=== PATIENT | female | born 1955 | race Caucasian/White ===

== ENCOUNTER → 2019-08-26 | Outpatient (CLI) | payer MEDICARE, MEDICAID ==
--- NOTE | 2019-08-26 16:41 | Diagnostic Imaging Report ---
EXAMINATION: Magnetic resonance imaging of the right shoulder without contrast. DATE: August 26, 2019. COMPARISON: None. HISTORY: 64-year-old female, fall in May 2019. Right shoulder pain, weakness, and decreased range of motion. TECHNIQUE: Magnetic Resonance Imaging sequences were performed of the shoulder without contrast. FINDINGS: ROTATOR CUFF, LIGAMENTS, TENDONS, AND MUSCLES: There is severe supraspinatus tendinopathy. There is mild infraspinatus tendinopathy. The teres minor tendon is intact. There is subscapularis tendinopathy. There is normal rotator cuff muscle bulk and signal. LONG HEAD OF BICEPS: The biceps labral attachment and long head of the biceps tendon are intact. The long head of the biceps tendon is normally positioned within the bicipital groove. GLENOHUMERAL JOINT: The humeral head is well positioned relative to the glenoid. The labrum is grossly intact. There is no identified paralabral cyst. The articular cartilage is grossly intact. There is no joint effusion. ACROMIOCLAVICULAR JOINT: The acromioclavicular joint is normally aligned. The coracoclavicular and coracoacromial ligaments are intact. There are severe acromioclavicular degenerative changes. The distal clavicle is projecting approximately 6 mm below the joint margin. BONE: There is no os acromiale. There is degenerative related marrow edema adjacent to the acromioclavicular joint. There is no Hill-Sachs deformity. There is no acute fracture, bone contusion, or evidence of osteonecrosis. BURSAE AND SOFT TISSUES: The bursae and soft tissue surrounding the shoulder are unremarkable. IMPRESSION: 1. Severe supraspinatus tendinopathy. Tendinopathy of the subscapularis and infraspinatus. Negative for full-thickness rotator cuff tendon tear. No fatty muscle atrophy. 2. Severe acromioclavicular degenerative changes with the distal clavicle projecting 6 mm below the joint margin. 3. No acute fracture, bone contusion, or evidence of osteonecrosis. 4. Grossly intact labrum and unremarkable additional glenohumeral joint assessment. Dictated by: Dictated on workstation # [id number]
== END ==
LOC: RAD 13:51
PROVIDERS: ATTEND Orthopaedic Surgery
DX: M75.101 Unspecified rotator cuff tear or rupture of right shoulder, not specified as traumatic (principal); M75.91 Shoulder lesion, unspecified, right shoulder; M19.011 Primary osteoarthritis, right shoulder
CPT/HCPCS: 73221

== ENCOUNTER → 2019-09-27 | Outpatient (CLI) | payer MEDICARE, MEDICAID ==
--- NOTE | 2019-09-27 14:50 | Diagnostic Imaging Report ---
PROCEDURE: MR imaging cervical spine without contrast. TECHNIQUE: Multiplanar, multisequence MR imaging of the cervical spine was performed without contrast. INDICATION: Fall with neck pain. COMPARISON: No prior MRI cervical spine studies are available for comparison. FINDINGS: Curvature and alignment of the cervical spine is normal. The vertebral body marrow signal is normal. No marrow lesion is seen. There is some generalized degenerative disc disease with variable disc space narrowing and desiccation. The cervical spinal cord demonstrates normal homogeneous signal intensity and normal morphology. The craniocervical junction is unremarkable. C2-C3: The central canal and neural foramina are widely patent. C3-C4: Minimal midline disc/osteophyte complex indents the ventral thecal sac. Central canal and neural foramina remain widely patent. C4-C5: Endplate osteophytes produce slight indentation upon the ventral thecal sac, but no central canal or neural foraminal stenosis is seen. C5-C6: Endplate osteophytes indent the ventral thecal sac. No significant central canal narrowing is seen. There is moderate bilateral neural foraminal narrowing due to uncovertebral joint degenerative change. C6-C7: Central canal and neural foramina are widely patent. Endplate osteophytes produce slight indentation upon the ventral thecal sac. C7-T1: Unremarkable. IMPRESSION: Mild generalized cervical spondylosis. No significant central canal narrowing is seen. There is neural foraminal narrowing described level by level above. Dictated by: Dictated on workstation # [id number]
== END ==
LOC: RAD 13:47
PROVIDERS: ATTEND Orthopaedic Surgery
DX: M47.812 Spondylosis without myelopathy or radiculopathy, cervical region (principal); M50.10 Cervical disc disorder with radiculopathy, unspecified cervical region; M48.02 Spinal stenosis, cervical region
CPT/HCPCS: 72141